=== PATIENT | male | born 1965 | race Caucasian/White ===

== ENCOUNTER 2017-02-19 16:29 | Emergency (ER) | payer SELFPAY ==
--- NOTE | 2017-02-19 17:34 | ED NURSING NOTES ---
Clinical Report - Nurses [place] [place] [address] 02/19/2017 16:30 Patient: ADRIAN PEREZ TRIAGE Acuity: LEVEL 4. Chief Complaint: INJURY TO LEFT KNEE. Alert. No acute distress. KEEGAN COMA SCORE: Keegan Coma Scale: 15- eyes open spontaneously (4); best verbal response- oriented x 4 (5); best motor response- obeys commands (6). --17:10 Anna Cabello R.N. 17:06 02/19/17. BP: 144/79. HR: 65. RR: 20. O2 saturation: 100% on room air. Temp: 98.5 F (oral). Pain level now: 09/20. --17:10 Anna Cabello R.N. Weight: 111.1 kg stated. Height/Length: 71 inches Per Patient. BMI: 34.2. --17:08 Anna Cabello R.N. Medications None. --17:06 Anna Cabello R.N. Medication/allergy information source: the patient. --17:10 Anna Cabello R.N. Allergies No Known Drug Allergy. --17:07 Anna Cabello R.N. History Arrived by private vehicle. Historian: patient. Accompanied by spouse. Primary physician (none). This occurred today. Occurred at work. Mechanism of injury: sustained a twisting injury while running. He has had trouble walking. The patient has been limping when trying to walk. SOCIAL HX: Never smoker. Occasional alcohol use. No drug use. FALL RISK ASSESSMENT: Fall risk assessment completed. No fall risk identified. NUTRITIONAL RISK ASSESSMENT: The nutritional risk assessment revealed no deficiencies. FUNCTIONAL ASSESSMENT: Functional assessment: no impairments noted. LEARNING NEEDS ASSESSMENT: The learning needs assessment revealed no barriers. SKIN INTEGRITY ASSESSMENT: Skin integrity risk assessment completed. No skin integrity risk identified. --17:10 Anna Cabello R.N. ADDITIONAL SURGERIES: Knee Surgery. --17:07 Anna Cabello R.N. Assessment GENERAL / NEURO / PSYCH: Alert. Oriented X 4. Appears in no acute distress. Patient appears calm and cooperative. RESPIRATORY: Respirations not labored. CVS: Capillary refill less than 2 seconds. GI / : Abdomen soft and nontender. SKIN: Mucous membranes are pink. Skin is warm and dry. --17:10 Anna Cabello R.N. Interventions ID band on patient. To treatment room. --17:10 Anna Cabello R.N. PHYSICAL ASSESSMENT 17:11 02/19/17. To room via wheelchair. GENERAL / NEURO / PSYCH: Oriented X 4. Alert. Appears in no acute distress. EXTREMITIES: Capillary refill is less than 2 seconds in the extremities. Limping gait. Neuro-vascular status intact to the extremity. Left knee: tenderness and swelling. Limited ROM secondary to pain. SKIN: Skin intact. Skin is warm and dry. --17:11 Anna Cabello R.N. NURSING PROGRESS NOTES 17:10 02/19/17. Patient gowned. Two patient identifiers checked. Call light placed in reach. Side rails up x 1. Bed placed in lowest position. Brakes of bed on. Patient ready for evaluation- chart flagged and ED physician and EXPLOSIVES TRUCK DRIVER notified. --17:11 Anna Cabello R.N. Immobilizer applied to the left knee by emergency vehicle technician; distal pulses intact, sensation intact and motor function within normal limits. Patient fit with new crutches. --17:45 Darnell Wilkes, FEROZ Tech1. DISPOSITION / DISCHARGE Departure time: 18:00 Feb 19 2017. Condition at departure: improved and stable. No learning barriers present. Discharge instructions provided and reviewed with the patient. Patient verbalized understanding. Written instructions provided in Luxembourgish. The patient was discharged by the physician assistant activities director. He was discharged home and accompanied by spouse. He left the Emergency Department ambulatory on crutches and via private vehicle. Spouse driving. --20:07 Anna Cabello R.N. Locked/Released at 02/19/2017 20:07 by Anna Cabello R.N.
--- NOTE | 2017-02-19 17:34 | ED NURSING NOTES ---
Clinical Report - Nurses [place] [place] [address] 02/19/2017 16:30 Patient: ADRIAN PEREZ TRIAGE Acuity: LEVEL 4. Chief Complaint: INJURY TO LEFT KNEE. Alert. No acute distress. KEEGAN COMA SCORE: Keegan Coma Scale: 15- eyes open spontaneously (4); best verbal response- oriented x 4 (5); best motor response- obeys commands (6). --17:10 Anna Cabello R.N. 17:06 02/19/17. BP: 144/79. HR: 65. RR: 20. O2 saturation: 100% on room air. Temp: 98.5 F (oral). Pain level now: 09/20. --17:10 Anna Cabello R.N. Weight: 111.1 kg stated. Height/Length: 71 inches Per Patient. BMI: 34.2. --17:08 Anna Cabello R.N. Medications None. --17:06 Anna Cabello R.N. Medication/allergy information source: the patient. --17:10 Anna Cabello R.N. Allergies No Known Drug Allergy. --17:07 Anna Cabello R.N. History Arrived by private vehicle. Historian: patient. Accompanied by spouse. Primary physician (none). This occurred today. Occurred at work. Mechanism of injury: sustained a twisting injury while running. He has had trouble walking. The patient has been limping when trying to walk. SOCIAL HX: Never smoker. Occasional alcohol use. No drug use. FALL RISK ASSESSMENT: Fall risk assessment completed. No fall risk identified. NUTRITIONAL RISK ASSESSMENT: The nutritional risk assessment revealed no deficiencies. FUNCTIONAL ASSESSMENT: Functional assessment: no impairments noted. LEARNING NEEDS ASSESSMENT: The learning needs assessment revealed no barriers. SKIN INTEGRITY ASSESSMENT: Skin integrity risk assessment completed. No skin integrity risk identified. --17:10 Anna Cabello R.N. ADDITIONAL SURGERIES: Knee Surgery. --17:07 Anna Cabello R.N. Assessment GENERAL / NEURO / PSYCH: Alert. Oriented X 4. Appears in no acute distress. Patient appears calm and cooperative. RESPIRATORY: Respirations not labored. CVS: Capillary refill less than 2 seconds. GI / : Abdomen soft and nontender. SKIN: Mucous membranes are pink. Skin is warm and dry. --17:10 Anna Cabello R.N. Interventions ID band on patient. To treatment room. --17:10 Anna Cabello R.N. PHYSICAL ASSESSMENT 17:11 02/19/17. To room via wheelchair. GENERAL / NEURO / PSYCH: Oriented X 4. Alert. Appears in no acute distress. EXTREMITIES: Capillary refill is less than 2 seconds in the extremities. Limping gait. Neuro-vascular status intact to the extremity. Left knee: tenderness and swelling. Limited ROM secondary to pain. SKIN: Skin intact. Skin is warm and dry. --17:11 Anna Cabello R.N. NURSING PROGRESS NOTES 17:10 02/19/17. Patient gowned. Two patient identifiers checked. Call light placed in reach. Side rails up x 1. Bed placed in lowest position. Brakes of bed on. Patient ready for evaluation- chart flagged and ED physician and SQUIRT MACHINE OPERATOR notified. --17:11 Anna Cabello R.N. Immobilizer applied to the left knee by substance abuse technician; distal pulses intact, sensation intact and motor function within normal limits. Patient fit with new crutches. --17:45 Darnell Wilkes, FEROZ Tech1. DISPOSITION / DISCHARGE Departure time: 18:00 Feb 19 2017. Condition at departure: improved and stable. No learning barriers present. Discharge instructions provided and reviewed with the patient. Patient verbalized understanding. Written instructions provided in Albanian. The patient was discharged by the physician assistant grocery store manager. He was discharged home and accompanied by spouse. He left the Emergency Department ambulatory on crutches and via private vehicle. Spouse driving. --20:07 Anna Cabello R.N. Locked/Released at 02/19/2017 20:07 by Anna Cabello R.N.
--- NOTE | 2017-02-19 17:34 | ED CLINICAL REPORT ---
Clinical Report - Physicians/Mid Levels [facility] [address] [place] [address] 02/19/2017 16:30 Patient: ADRIAN PEREZ Time Seen: 18:22 Donnie 2016. Arrived- By private vehicle. Historian- patient. HISTORY OF PRESENT ILLNESS Chief Complaint: Injury to right knee. The injury happened just prior to arrival. Occurred at work. Patient is experiencing mild pain. Patient denies injury to the head or neck. 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 Denies prior injury to the left knee. He denies any direct trauma to the left knee.). REVIEW OF SYSTEMS No tingling. All systems otherwise negative, except as recorded above. PAST HISTORY The patient has not had a prior injury to the same area. SOCIAL HISTORY Never smoker. Alcohol use. No drug use. ADDITIONAL NOTES The nursing notes have been reviewed. PHYSICAL EXAM Vital Signs: 02/19/2017 17:06 BP: 144/79. HR: 65. RR: 20. O2 saturation: 100%. Temp: 98.5 F. Pain level now: 1/10. Appearance: Alert. Head: Head atraumatic. ENT: Ears normal. Nose normal. CVS: Normal heart rate and rhythm. Heart sounds normal. Respiratory: No respiratory distress. Breath sounds normal. Abdomen: No visible injury. Soft. Bowel sounds normal. Skin: Skin warm. Normal skin color. Extremities: Left thigh. No tenderness or laceration. Left knee: moderate tenderness and swelling located in the medial joint line. Small joint effusion present. No ligamentous laxity present. No abrasion, ecchymosis or foreign body. No limitation in ROM. Left leg. No tenderness. Gait: Gait not tested due to pain. Neuro: Oriented X 3. PROGRESS AND PROCEDURES PROCEDURES (Left knee immobolizer, crutches.). Course of Care: The patient here in the ER with signs of medial joint line tenderness of the left knee, status post twisting like injury while ambulating. There was no mechanical force, and this fracture is less suspicious, discussed this with the patient. NO lac, no ecchymosis. 02/19/2017 17:06 BP: 144/79. HR: 65. RR: 20. O2 saturation: 100%. Temp: 98.5 F. Pain level now: 09/20. Patient is stable. Symptoms better. Patient/family counseled. Disposition: Discharged. CLINICAL IMPRESSION Sprain of the medial collateral ligament of the left knee. INSTRUCTIONS Apply ice. Use crutches. Wear knee immobilizer. Elevate affected areas above chest level. Do not work for six days. OTC Medications: Motrin IB 200 mg (available over the counter): take 4 orally every 8 hours for 5 days, as needed for swelling Follow-up: Follow up with a specialist. [facility]: [facility], , [address] [facility] [id number] Follow up. Call for the next available appointment. (Electronically signed by Dawna Cortes P.A.-C 02/19/2017 19:02)
--- NOTE | 2017-02-19 17:34 | ED CLINICAL REPORT ---
Clinical Report - Physicians/Mid Levels [facility] [address] [place] [address] 02/19/2017 16:30 Patient: ADRIAN PEREZ Time Seen: 18:22 Donnie 2016. Arrived- By private vehicle. Historian- patient. HISTORY OF PRESENT ILLNESS Chief Complaint: Injury to right knee. The injury happened just prior to arrival. Occurred at work. Patient is experiencing mild pain. Patient denies injury to the head or neck. 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 Denies prior injury to the left knee. He denies any direct trauma to the left knee.). REVIEW OF SYSTEMS No tingling. All systems otherwise negative, except as recorded above. PAST HISTORY The patient has not had a prior injury to the same area. SOCIAL HISTORY Never smoker. Alcohol use. No drug use. ADDITIONAL NOTES The nursing notes have been reviewed. PHYSICAL EXAM Vital Signs: 02/19/2017 17:06 BP: 144/79. HR: 65. RR: 20. O2 saturation: 100%. Temp: 98.5 F. Pain level now: 1/10. Appearance: Alert. Head: Head atraumatic. ENT: Ears normal. Nose normal. CVS: Normal heart rate and rhythm. Heart sounds normal. Respiratory: No respiratory distress. Breath sounds normal. Abdomen: No visible injury. Soft. Bowel sounds normal. Skin: Skin warm. Normal skin color. Extremities: Left thigh. No tenderness or laceration. Left knee: moderate tenderness and swelling located in the medial joint line. Small joint effusion present. No ligamentous laxity present. No abrasion, ecchymosis or foreign body. No limitation in ROM. Left leg. No tenderness. Gait: Gait not tested due to pain. Neuro: Oriented X 3. PROGRESS AND PROCEDURES PROCEDURES (Left knee immobolizer, crutches.). Course of Care: The patient here in the ER with signs of medial joint line tenderness of the left knee, status post twisting like injury while ambulating. There was no mechanical force, and this fracture is less suspicious, discussed this with the patient. NO lac, no ecchymosis. 02/19/2017 17:06 BP: 144/79. HR: 65. RR: 20. O2 saturation: 100%. Temp: 98.5 F. Pain level now: 09/20. Patient is stable. Symptoms better. Patient/family counseled. Disposition: Discharged. CLINICAL IMPRESSION Sprain of the medial collateral ligament of the left knee. INSTRUCTIONS Apply ice. Use crutches. Wear knee immobilizer. Elevate affected areas above chest level. Do not work for six days. OTC Medications: Motrin IB 200 mg (available over the counter): take 4 orally every 8 hours for 5 days, as needed for swelling Follow-up: Follow up with a specialist. [facility]: [facility], , [address] [facility] [id number] Follow up. Call for the next available appointment. (Electronically signed by Dawna Cortse P.A.-C 02/19/2017 19:02)
--- NOTE | 2017-02-19 20:07 | ED DISCHARGE INSTRUCTIONS ---
Patient: ADRIAN PEREZ General Instructions [facility] VisitID: [id number] [address], [place] [id number] 52y, M Registration Date/Time: 02/19/2017 Sprain of the medial collateral ligament of the left knee. INSTRUCTIONS Apply ice. Use crutches. Wear knee immobilizer. Elevate affected areas above chest level. Do not work for six days. OTC Medications: Motrin IB 200 mg (available over the counter): take 4 orally every 8 hours for 5 days, as needed for swelling Follow-up: Follow up with a specialist. Follow-up with: [facility], , [address] [place], [id number] Follow up. Call for the next available appointment. ADDITIONAL INFORMATION Sprain, Knee A sprain is an injury to the ligaments or capsule that holds a joint together. There are no broken bones. Most sprains take three to six weeks to heal. If the ligament is completely torn (severe sprain), it can take months to recover from. Most knee sprains are treated with a splint, knee immobilizer or elastic wrap for support. Severe sprains may require surgery. Home care The following guidelines will help you care for your injury at home: Stay off the injured leg as much as possible until you can walk on it without pain. If you have a lot of pain with walking, crutches or a walker may be prescribed. (These can be rented or purchased at many pharmacies and surgical or orthopedic supply stores). Follow your doctor's advice regarding when to begin bearing weight on that leg. Keep your leg elevated to reduce pain and swelling. When sleeping, place a pillow under the injured leg. When sitting, support the injured leg so it is level with your waist. This is very important during the first 48 hours. Apply an ice pack (ice cubes in a plastic bag, wrapped in a towel) over the injured area for 20 minutes every 12 hours the first day. You can place the ice pack directly over the splint. If a Velcro knee immobilizer was applied, you can open this to apply the ice pack directly to the knee. Continue with ice packs 34 times a day for the next two days, then as needed for the relief of pain and swelling. You may use acetaminophen or ibuprofen to control pain, unless another pain medicine was prescribed. If you have chronic liver or kidney disease or ever had a stomach ulcer or GI bleeding, talk with your doctor before using these medicines. If you were given a splint, keep it completely dry at all times. Bathe with your splint out of the water, protected with a large plastic bag, rubber-banded at the top end. If a fiberglass splint gets wet, you can dry it with a hair-dryer. If you have a Velcro knee immobilizer, you can remove this to bathe, unless told otherwise. Follow-up care Follow up with your doctor as advised. Any X-rays you had today dont show any broken bones, breaks, or fractures. Sometimes fractures dont show up on the first X-ray. Bruises and sprains can sometimes hurt as much as a fracture. These injuries can take time to heal completely. If your symptoms dont improve or they get worse, talk with your doctor. You may need a repeat X-ray. When to seek medical care Get prompt medical attention if any of the following occur: The plaster cast or splint becomes wet or soft The fiberglass cast or splint remains wet for more than 24 hours Pain or swelling increases Toes become cold, blue, numb or tingly Knee Sprain, Collateral Ligaments The knee is a hinge joint supported by four strong ligaments. The two ligaments inside the knee (cruciate ligaments) protect this joint from excess forward and backward movement. The ligaments on the outside of the joint (collateral ligaments) prevent elkh-wq-sayc motion. The medial collateral ligament (MCL) is located on the inner side of the joint; and the lateral collateral ligament (LCL) is on the outer side of the joint. You have sprained one or both collateral ligaments. A sprain is a tearing of a ligament. The tear may be partial or complete. Diagnosis is made by physical exam. In the case of an acute injury, the knee may be too swollen or painful to examine fully. A more accurate exam can be performed after the initial swelling goes down. Symptoms of a knee sprain include immediate knee swelling, pain, and difficulty walking.Initial treatment includes resting the joint, splinting to reduce movement of the joint, use of ice to reduce swelling and pain. Non-steroidal anti-inflammatory drugs (NSAIDs), such as ibuprofen, may be prescribed. Most sprains will heal in one to four weeks.A severe injury can take three to four months to heal and requires rehabilitation exercises. Surgery is usually not required for sprains involving only the collateral ligaments. Home care The following guidelines will help you care for your injury at home: Stay off the injured leg as much as possible until you can walk on it without pain. If you have a lot of pain while walking, crutches, or a walker may be prescribed. (These can be rented or purchased at many pharmacies and surgical or orthopedic supply stores.) Follow your doctor's advice regarding when to begin bearing weight on that leg. If you were given a wjpz-ykm-fwln closure knee brace, you can remove this to bathe, but leave it in place when walking, sitting, or lying down (unless told otherwise). Apply an ice pack (ice cubes in a plastic bag, wrapped in a towel) over the injured area for 20 minutes every 12 hours the first day. If a gxtm-bme-vvpd closure knee brace was applied, you can open this to apply the ice pack directly to the knee. Continue with ice packs 34 times a day for the next two days, then as needed for the relief of pain and swelling. You may use acetaminophen or ibuprofen to control pain, unless another pain medicine was prescribed. If you have chronic liver or kidney disease or ever had a stomach ulcer or GI bleeding, talk with your doctor before using these medicines. Follow-up care Follow up with the referral doctor, or as advised by our staff. Any X-rays you had today dont show any broken bones, breaks, or fractures. Sometimes fractures dont show up on the first X-ray. Bruises and sprains can sometimes hurt as much as a fracture. These injuries can take time to heal completely. If your symptoms dont improve or they get worse, talk with your doctor. You may need a repeat X-ray. When to seek medical care Get prompt medical attention if any of the following occur: Pain or swelling worsens Shortness of breath or chest pain Swelling or redness or pain of the calf or thigh Ibuprofen Oral tablet What is this medicine? IBUPROFEN (eye BYOO proe fen) is a non-steroidal anti-inflammatory drug (NSAID). It is used for dental pain, fever, headaches or migraines, osteoarthritis, rheumatoid arthritis, or painful monthly periods. It can also relieve minor aches and pains caused by a cold, flu, or sore throat. How should I use this medicine? Take this medicine by mouth with a glass of water. Follow the directions on the prescription label. Take this medicine with food if your stomach gets upset. Try to not lie down for at least 10 minutes after you take the medicine. Take your medicine at regular intervals. Do not take your medicine more often than directed. A special MedGuide will be given to you by the pharmacist with each prescription and refill. Be sure to read this information carefully each time. Talk to your dope sprayer regarding the use of this medicine in children. Special care may be needed. What side effects may I notice from receiving this medicine? Side effects that you should report to your doctor or health career professional as soon as possible: allergic reactions like skin rash, itching or hives, swelling of the face, lips, or tongue black or bloody stools, blood in the urine or in vomit breathing problems changes in vision chest pain general ill feeling or flu-like symptoms nausea or vomiting redness, blistering, peeling or loosening of the skin, including inside the mouth slurred speech or weakness on one side of the body stomach pain unexplained weight gain or swelling unusually weak or tired yellowing of eyes or skin Side effects that usually do not require medical attention (report to your doctor or health career professional if they continue or are bothersome): constipation or diarrhea dizziness gas or heartburn stomach upset What may interact with this medicine? Do not take this medicine with any of the following medications: cidofovir ketorolac methotrexate pemetrexed This medicine may also interact with the following medications: alcohol aspirin diuretics lithium other drugs for inflammation like prednisone warfarin What if I miss a dose? If you miss a dose, take it as soon as you can. If it is almost time for your next dose, take only that dose. Do not take double or extra doses. Where should I keep my medicine? Keep out of the reach of children. Store at room temperature between 15 and 30 degrees C (59 and 86 degrees F). Keep container tightly closed. Throw away any unused medicine after the expiration date. What should I tell my health care provider before I take this medicine? They need to know if you have any of these conditions: asthma cigarette smoker drink more than 3 alcohol containing drinks a day heart disease or circulation problems such as heart failure or leg edema (fluid retention) high blood pressure kidney disease liver disease stomach bleeding or ulcers an unusual or allergic reaction to ibuprofen, aspirin, other NSAIDS, other medicines, foods, dyes, or preservatives or trying to get breast-feeding What should I watch for while using this medicine? Tell your doctor or healthcare professional if your symptoms do not start to get better or if they get worse. This medicine does not prevent heart attack or stroke. In fact, this medicine may increase the chance of a heart attack or stroke. The chance may increase with longer use of this medicine and in people who have heart disease. If you take aspirin to prevent heart attack or stroke, talk with your doctor or health career professional. Do not take other medicines that contain aspirin, ibuprofen, or naproxen with this medicine. Side effects such as stomach upset, nausea, or ulcers may be more likely to occur. Many medicines available without a prescription should not be taken with this medicine. This medicine can cause ulcers and bleeding in the stomach and intestines at any time during treatment. Ulcers and bleeding can happen without warning symptoms and can cause . To reduce your risk, do not smoke cigarettes or drink alcohol while you are taking this medicine. You may get drowsy or dizzy. Do not drive, use machinery, or do anything that needs mental alertness until you know how this medicine affects you. Do not stand or sit up quickly, especially if you are an older patient. This reduces the risk of dizzy or fainting spells. This medicine can cause you to bleed more easily. Try to avoid damage to your teeth and gums when you brush or floss your teeth. You have been given the following additional information: Knee Sprain Knee Sprain: Collateral Ligaments Ibuprofen Oral tablet Do not work for six days. (Electronically signed by Dawna Cortes P.A.-C 02/19/2017 19:02)
--- NOTE | 2017-02-19 20:07 | ED DISCHARGE INSTRUCTIONS ---
Patient: ADRIAN PEREZ General Instructions [facility] VisitID: [id number] [address], [place] [id number] 52y, M Registration Date/Time: 02/19/2017 Sprain of the medial collateral ligament of the left knee. INSTRUCTIONS Apply ice. Use crutches. Wear knee immobilizer. Elevate affected areas above chest level. Do not work for six days. OTC Medications: Motrin IB 200 mg (available over the counter): take 4 orally every 8 hours for 5 days, as needed for swelling Follow-up: Follow up with a specialist. Follow-up with: [facility], , [address] [place], [address] Follow up. Call for the next available appointment. ADDITIONAL INFORMATION Sprain, Knee A sprain is an injury to the ligaments or capsule that holds a joint together. There are no broken bones. Most sprains take three to six weeks to heal. If the ligament is completely torn (severe sprain), it can take months to recover from. Most knee sprains are treated with a splint, knee immobilizer or elastic wrap for support. Severe sprains may require surgery. Home care The following guidelines will help you care for your injury at home: Stay off the injured leg as much as possible until you can walk on it without pain. If you have a lot of pain with walking, crutches or a walker may be prescribed. (These can be rented or purchased at many pharmacies and surgical or orthopedic supply stores). Follow your doctor's advice regarding when to begin bearing weight on that leg. Keep your leg elevated to reduce pain and swelling. When sleeping, place a pillow under the injured leg. When sitting, support the injured leg so it is level with your waist. This is very important during the first 48 hours. Apply an ice pack (ice cubes in a plastic bag, wrapped in a towel) over the injured area for 20 minutes every 12 hours the first day. You can place the ice pack directly over the splint. If a Velcro knee immobilizer was applied, you can open this to apply the ice pack directly to the knee. Continue with ice packs 34 times a day for the next two days, then as needed for the relief of pain and swelling. You may use acetaminophen or ibuprofen to control pain, unless another pain medicine was prescribed. If you have chronic liver or kidney disease or ever had a stomach ulcer or GI bleeding, talk with your doctor before using these medicines. If you were given a splint, keep it completely dry at all times. Bathe with your splint out of the water, protected with a large plastic bag, rubber-banded at the top end. If a fiberglass splint gets wet, you can dry it with a hair-dryer. If you have a Velcro knee immobilizer, you can remove this to bathe, unless told otherwise. Follow-up care Follow up with your doctor as advised. Any X-rays you had today dont show any broken bones, breaks, or fractures. Sometimes fractures dont show up on the first X-ray. Bruises and sprains can sometimes hurt as much as a fracture. These injuries can take time to heal completely. If your symptoms dont improve or they get worse, talk with your doctor. You may need a repeat X-ray. When to seek medical care Get prompt medical attention if any of the following occur: The plaster cast or splint becomes wet or soft The fiberglass cast or splint remains wet for more than 24 hours Pain or swelling increases Toes become cold, blue, numb or tingly Knee Sprain, Collateral Ligaments The knee is a hinge joint supported by four strong ligaments. The two ligaments inside the knee (cruciate ligaments) protect this joint from excess forward and backward movement. The ligaments on the outside of the joint (collateral ligaments) prevent zjxk-er-xdyy motion. The medial collateral ligament (MCL) is located on the inner side of the joint; and the lateral collateral ligament (LCL) is on the outer side of the joint. You have sprained one or both collateral ligaments. A sprain is a tearing of a ligament. The tear may be partial or complete. Diagnosis is made by physical exam. In the case of an acute injury, the knee may be too swollen or painful to examine fully. A more accurate exam can be performed after the initial swelling goes down. Symptoms of a knee sprain include immediate knee swelling, pain, and difficulty walking.Initial treatment includes resting the joint, splinting to reduce movement of the joint, use of ice to reduce swelling and pain. Non-steroidal anti-inflammatory drugs (NSAIDs), such as ibuprofen, may be prescribed. Most sprains will heal in one to four weeks.A severe injury can take three to four months to heal and requires rehabilitation exercises. Surgery is usually not required for sprains involving only the collateral ligaments. Home care The following guidelines will help you care for your injury at home: Stay off the injured leg as much as possible until you can walk on it without pain. If you have a lot of pain while walking, crutches, or a walker may be prescribed. (These can be rented or purchased at many pharmacies and surgical or orthopedic supply stores.) Follow your doctor's advice regarding when to begin bearing weight on that leg. If you were given a okld-xpe-rgfa closure knee brace, you can remove this to bathe, but leave it in place when walking, sitting, or lying down (unless told otherwise). Apply an ice pack (ice cubes in a plastic bag, wrapped in a towel) over the injured area for 20 minutes every 12 hours the first day. If a dcqv-zlk-axak closure knee brace was applied, you can open this to apply the ice pack directly to the knee. Continue with ice packs 34 times a day for the next two days, then as needed for the relief of pain and swelling. You may use acetaminophen or ibuprofen to control pain, unless another pain medicine was prescribed. If you have chronic liver or kidney disease or ever had a stomach ulcer or GI bleeding, talk with your doctor before using these medicines. Follow-up care Follow up with the referral doctor, or as advised by our staff. Any X-rays you had today dont show any broken bones, breaks, or fractures. Sometimes fractures dont show up on the first X-ray. Bruises and sprains can sometimes hurt as much as a fracture. These injuries can take time to heal completely. If your symptoms dont improve or they get worse, talk with your doctor. You may need a repeat X-ray. When to seek medical care Get prompt medical attention if any of the following occur: Pain or swelling worsens Shortness of breath or chest pain Swelling or redness or pain of the calf or thigh Ibuprofen Oral tablet What is this medicine? IBUPROFEN (eye BYOO proe fen) is a non-steroidal anti-inflammatory drug (NSAID). It is used for dental pain, fever, headaches or migraines, osteoarthritis, rheumatoid arthritis, or painful monthly periods. It can also relieve minor aches and pains caused by a cold, flu, or sore throat. How should I use this medicine? Take this medicine by mouth with a glass of water. Follow the directions on the prescription label. Take this medicine with food if your stomach gets upset. Try to not lie down for at least 10 minutes after you take the medicine. Take your medicine at regular intervals. Do not take your medicine more often than directed. A special MedGuide will be given to you by the pharmacist with each prescription and refill. Be sure to read this information carefully each time. Talk to your wet cleaner machine regarding the use of this medicine in children. Special care may be needed. What side effects may I notice from receiving this medicine? Side effects that you should report to your doctor or health transitions rn care coordinator as soon as possible: allergic reactions like skin rash, itching or hives, swelling of the face, lips, or tongue black or bloody stools, blood in the urine or in vomit breathing problems changes in vision chest pain general ill feeling or flu-like symptoms nausea or vomiting redness, blistering, peeling or loosening of the skin, including inside the mouth slurred speech or weakness on one side of the body stomach pain unexplained weight gain or swelling unusually weak or tired yellowing of eyes or skin Side effects that usually do not require medical attention (report to your doctor or health transitions rn care coordinator if they continue or are bothersome): constipation or diarrhea dizziness gas or heartburn stomach upset What may interact with this medicine? Do not take this medicine with any of the following medications: cidofovir ketorolac methotrexate pemetrexed This medicine may also interact with the following medications: alcohol aspirin diuretics lithium other drugs for inflammation like prednisone warfarin What if I miss a dose? If you miss a dose, take it as soon as you can. If it is almost time for your next dose, take only that dose. Do not take double or extra doses. Where should I keep my medicine? Keep out of the reach of children. Store at room temperature between 15 and 30 degrees C (59 and 86 degrees F). Keep container tightly closed. Throw away any unused medicine after the expiration date. What should I tell my health care provider before I take this medicine? They need to know if you have any of these conditions: asthma cigarette smoker drink more than 3 alcohol containing drinks a day heart disease or circulation problems such as heart failure or leg edema (fluid retention) high blood pressure kidney disease liver disease stomach bleeding or ulcers an unusual or allergic reaction to ibuprofen, aspirin, other NSAIDS, other medicines, foods, dyes, or preservatives or trying to get breast-feeding What should I watch for while using this medicine? Tell your doctor or healthcare professional if your symptoms do not start to get better or if they get worse. This medicine does not prevent heart attack or stroke. In fact, this medicine may increase the chance of a heart attack or stroke. The chance may increase with longer use of this medicine and in people who have heart disease. If you take aspirin to prevent heart attack or stroke, talk with your doctor or health transitions rn care coordinator. Do not take other medicines that contain aspirin, ibuprofen, or naproxen with this medicine. Side effects such as stomach upset, nausea, or ulcers may be more likely to occur. Many medicines available without a prescription should not be taken with this medicine. This medicine can cause ulcers and bleeding in the stomach and intestines at any time during treatment. Ulcers and bleeding can happen without warning symptoms and can cause . To reduce your risk, do not smoke cigarettes or drink alcohol while you are taking this medicine. You may get drowsy or dizzy. Do not drive, use machinery, or do anything that needs mental alertness until you know how this medicine affects you. Do not stand or sit up quickly, especially if you are an older patient. This reduces the risk of dizzy or fainting spells. This medicine can cause you to bleed more easily. Try to avoid damage to your teeth and gums when you brush or floss your teeth. You have been given the following additional information: Knee Sprain Knee Sprain: Collateral Ligaments Ibuprofen Oral tablet Do not work for six days. (Electronically signed by Dawna Cortes P.A.-C 02/19/2017 19:02)
--- NOTE | 2017-02-19 20:08 | ED MED RECONCILIATION SUMMARY ---
Patient: ADRIAN PEREZ Medication Reconciliation Report [facility] VisitID: [id number] [address] [place] [address] 52y, M Registration Date/Time: 02/19/2017 Weight: 111.1 kg Height/Length: 71 in. BMI: 34.2 ALLERGIES: No Known Drug Allergy The patient's Home Medications are listed below: NONE. The source(s) of the original Home Medication information: patient The following Medications were given to the patient in the Emergency Department: None. The following Medications were prescribed to the patient: Motrin IB 200 mg (available over the counter): take 4 orally every 8 hours for 5 days, as needed for swelling -- Dawna Cortes P.A.-C
--- NOTE | 2017-02-19 20:08 | ED MAR SUMMARY ---
..... Medication Administration Record [facility] [address] [place] [address] Patient: ADRIAN PEREZ Visit ID: [id number] 52y, M Weight: 111.1 kg Height/Length: 71 in BMI: 34.2 ALLERGIES: No Known Drug Allergy
--- NOTE | 2017-02-19 20:08 | ED MED RECONCILIATION SUMMARY ---
Patient: ADRIAN PEREZ Medication Reconciliation Report [facility] VisitID: [id number] [address] [place] [address] 52y, M Registration Date/Time: 02/19/2017 Weight: 111.1 kg Height/Length: 71 in. BMI: 34.2 ALLERGIES: No Known Drug Allergy The patient's Home Medications are listed below: NONE. The source(s) of the original Home Medication information: patient The following Medications were given to the patient in the Emergency Department: None. The following Medications were prescribed to the patient: Motrin IB 200 mg (available over the counter): take 4 orally every 8 hours for 5 days, as needed for swelling -- Dawna Cortes P.A.-C
--- NOTE | 2017-02-19 20:08 | ED MAR SUMMARY ---
..... Medication Administration Record [facility] [address] [place] [address] Patient: ADRIAN PEREZ Visit ID: [id number] 52y, M Weight: 111.1 kg Height/Length: 71 in BMI: 34.2 ALLERGIES: No Known Drug Allergy
== END 2017-02-19 18:00 | disposition home or self-care (01) ==
LOC: ED SRH 16:29
DX: S83.412A Sprain of medial collateral ligament of left knee, initial encounter (principal); X50.1XXA Overexertion from prolonged static or awkward postures, initial encounter; Y93.01 Activity, walking, marching and hiking; Y92.89 Other specified places as the place of occurrence of the external cause; Y99.2 Volunteer activity